=== PATIENT | female | born 1995 | race Caucasian/White ===

== ENCOUNTER 2019-12-15 05:06 | Day surgery (SDC) | payer BC ==
[2019-12-14 11:42] VITALS: BMI 21.9
[2019-12-15] MEDS ORDERED: THROMBIN (BOVINE) 5,000 UNIT VIAL TP ONE (15:27)
[2019-12-15] MEDS ORDERED: PROPOFOL 20 ML ONE (15:42)
[2019-12-15] MEDS ORDERED: DEXAMETHASONE SOD PHOSPHATE 4 MG/1 ML VIAL ONE (15:43)
[2019-12-15] MEDS ORDERED: MIDAZOLAM HCL 2 MG/2 ML SINGLE DOSE VIAL ONE ×2 (15:43)
[2019-12-15] MEDS ORDERED: ceFAZolin SODIUM 1 GM VIAL ONE (15:43)
[2019-12-15] MEDS ORDERED: ROCURONIUM BROMIDE 50 MG/5 ML SYRINGE ONE (15:43)
[2019-12-15] MEDS ORDERED: LIDOCAINE HCL/PF 2% SDV 5ML VIAL ONE (15:44)
[2019-12-15] MEDS ORDERED: LIDOCAINE 1%/EPI 1:100000 (20 ML MULTI DOSE VIAL) ONE (16:30)
[2019-12-15] MEDS ORDERED: LIDOCAINE HCL 2% (20ML MULTI-DOSE VIAL) ONE (16:31)
[2019-12-15] MEDS ORDERED: ceFAZolin SODIUM 1 GM VIAL IVPB ONE (16:55)
[2019-12-15] MEDS ORDERED: LIDOCAINE 1%/EPI 1:100000 (20 ML MULTI DOSE VIAL) IJ ONE ×2 (17:17)
[2019-12-15] MEDS ORDERED: BUPIVACAINE HCL/PF 0.5% (5MG/ML) 10 ML VIAL IJ ONE ×2 (17:17)
--- NOTE | 2019-12-15 19:09 | OP ---
Operative Note - Note: Operative Date: 12/15/19 Pre-Operative Diagnosis: Hyperthyroidism Operation: Total thyroidectomy Findings: as dictated Post-Operative Diagnosis: Same as Pre-op Surgeon: Chad Martin Homeworker: Debbie Trejo Anesthesiologist/LPN: Oscar Zamora Anesthesia: General, Local Estimated Blood Loss (mls): 20 Fluid Volume Replaced (mls): 1,200 (ml lr) Operative Report Dictated: Yes
[2019-12-15] MEDS ORDERED: traMADol HCL 50 MG TABLET PO ONE (22:05)
[2019-12-15] MEDS ORDERED: KETOROLAC TROMETHAMINE 30 MG/1 ML VIAL IVPUSH ONE (22:19)
[2019-12-15 23:33] VITALS: BP 119/67; PULSE 96; TEMP 98.8
--- NOTE | 2019-12-16 11:00 | OP ---
DATE OF OPERATION: 12/15/2019 SURGICAL ATTENDING: Brandi Carter MD REPORTING SPECIALIST: PIPO Santos PREOPERATIVE DIAGNOSIS: Graves disease. POSTOPERATIVE DIAGNOSIS: Graves disease. ANESTHESIA: General endotracheal. PROCEDURE: Total thyroidectomy. DESCRIPTION OF PROCEDURE: The patient was taken into the operating room, placed in supine position, endotracheally intubated. The neck was then prepped and draped in the usual sterile fashion. Local anesthesia was administered, and a horizontal incision was made in the mid anterior neck. This was carried down through subcutaneous tissues and platysma. Subplatysmal flaps were raised superiorly and inferiorly, and flap hooks were placed for exposure. The median raphe was incised and the strap muscles were elevated bilaterally. Dissection began on the right side where the recurrent laryngeal nerve, superior laryngeal nerve, and parathyroid glands were preserved. The superior, posterior, and inferior attachments were transected. The right thyroid lobe was lifted off of the trachea. The isthmus was transected. Attention was then turned to the left side, where the recurrent laryngeal nerve, superior laryngeal nerve, and parathyroid glands were identified and preserved. The superior, posterior, and inferior attachments of the thyroid were transected. The left thyroid lobe was then lifted off the trachea with electrocautery. Both right and left lobes were checked for parathyroid tissue, and none was found. They were then sent for pathological evaluation. Hemostasis was achieved with electrocautery and checked by Valsalva maneuver. Gelfoam and thrombin were then placed. The wound was then closed in 3 layers. Dermabond was placed. Note that nerve monitoring was used throughout. The patient was then awakened, extubated, and taken to recovery in stable condition. Dr. Carter, the attending surgeon, was present throughout the entire procedure. BRANDI CARTER M.D. [id number]
--- NOTE | 2019-12-18 12:56 | SURG ---
Surgery Flagsetter Note Flagsetter: Debbie Trejo PA-C (Suzy) Date of Service: 12/15/19 Diagnosis: Pre-Operative Diagnosis: Hyperthyroidism Procedure: Operation: Total thyroidectomy I was present for the entirety of the operative procedure. For further detail, please refer to operative report. Visit type - Case Type Case Type: Scheduled - Emergency Emergency Visit: No - New patient This patient is new to me today: Yes Date on this admission: 12/18/19 - Critical Care Critical Care patient: No
--- NOTE | 2019-12-21 09:48 | PATH ---
Surgical Pathology Report Patient Name: ADILIA HERRERA [facility]. Rec. #: [id number] /Age/Gender: 1995 (Age: 24) / F Account: [id number] Location: [facility] SURGICAL Taken: 12/15/2019 Received: 12/18/2019 Reported: 12/21/2019 Physicians: Chad Martin M.D. Specimen(s) Received A: RIGHT THYROID LOBE B: LEFT THYROID LOBE Clinical History Graves' disease; total thyroidectomy Final Diagnosis A. RIGHT THYROID LOBE, HEMITHYROIDECTOMY: LYMPHOCYTIC THYROIDITIS COMPATIBLE WITH CLINICAL HISTORY OF GRAVES' DISEASE. ONE BENIGN LYMPH NODE (0/1). SMALL PORTION OF PARATHYROID TISSUE PRESENT. NEGATIVE FOR MALIGNANCY. B. LEFT THYROID LOBE, HEMITHYROIDECTOMY: LYMPHOCYTIC THYROIDITIS COMPATIBLE WITH CLINICAL HISTORY OF GRAVES' DISEASE. ONE BENIGN LYMPH NODE (0/1). SMALL PORTION OF PARATHYROID TISSUE PRESENT. NEGATIVE FOR MALIGNANCY. Electronically Signed Pancho Pollock M.D. Gross Description A. Specimen received in formalin labeled "right thyroid lobe", consists of a portion of thyroid tissue weighing 8 grams and measures 4.5 x 2.0 x 1.0cm. The surface of thyroid tissue is inked blue. Serial sections revealed homogeneous thyroid tissue with focal nodular change. Entire specimen submitted in 9 cassettes. B. Specimen received in formalin labeled "left thyroid lobe", consists of a portion of thyroid tissue weighing 6 grams and measures 4.0 x 3.0 x 1.0cm. The surface of thyroid tissue is inked blue. Serial sections revealed homogeneous thyroid tissue. A nodule without capsule measuring 5mm in greatest dimension is noted. Entire specimen submitted in 7 cassettes, the nodule is included in cassette 3 and 4. KWS/12/18/2019 donald/12/18/2019
== END 2019-12-15 23:45 | disposition home or self-care (01) ==
LOC: JASU-SURG 05:06 → J7W 21:58 → JASU-SURG 23:45
PROVIDERS: ATTEND Surgery
PROC: 0GBJ0ZZ Excision of Thyroid Gland Isthmus, Open Approach (ICD-10-PCS; 2019-12-15)
PROC: 0GTK0ZZ Resection of Thyroid Gland, Open Approach (ICD-10-PCS; principal; 2019-12-15 15:30)
DX: E05.00 Thyrotoxicosis with diffuse goiter without thyrotoxic crisis or storm (principal)
CPT/HCPCS: 84703; 88307-TC; 94760